=== PATIENT | female | born 1965 | race Caucasian/White ===

== ENCOUNTER 2019-03-11 14:19 | Outpatient (CLI) | payer OTHER, SELFPAY ==
--- NOTE | 2019-03-11 15:00 | USCV_ITS ---
Barbara Reece Age: 53 Gender: F : 1965 Exam Date: 03/11/2019 14:58 Ordering Phys: Jed Arroyo MD Technologist: Amy Mosher [place] [facility] [place]: HTN. COPD. BP: / HR: 67 Rhythm: Sinus Technical Quality: Adequate MEASUREMENTS (Male / Female) Normal Values 2D ECHO LV Diastolic Diameter PLAX 4.2 cm 4.2 - 5.9 / 3.9 - 5.3 cm LV Systolic Diameter PLAX 2.0 cm LV Chamber Size 3.7 cm IVS Diastolic Thickness 1.5 cm 0.6 - 1.0 / 0.6 - 0.9 cm IVS Systolic Thickness 1.8 cm LVPW Diastolic Thickness 1.2 cm 0.6 - 1.0 / 0.6 - 0.9 cm LVPW Systolic Thickness 1.7 cm RV Chamber Size 2.6 cm LVOT Diameter 2.1 cm LV Ejection Fraction 2D Teich 84.0 % LV Ejection Fraction MOD 2C 49.8 % LV Ejection Fraction 2C AL 54.0 % LA Diameter 4.0 cm LA Width 2.9 cm LA Height 4.7 cm RA Width 2.5 cm RA Height 3.8 cm Aorta at Sinotubular Diameter 2.8 cm M-MODE LV Diastolic Diameter MM 4.5 cm 4.2 - 5.9 / 3.9 - 5.3 cm LV Systolic Diameter MM 3.5 cm LV Ejection Fraction MM Teich 45.7 % IVS Diastolic Thickness MM 1.4 cm 0.6 - 1.0 / 0.6 - 0.9 cm IVS Systolic Thickness MM 1.6 cm LVPW Diastolic Thickness MM 1.2 cm 0.6 - 1.0 / 0.6 - 0.9 cm LVPW Systolic Thickness MM 1.7 cm RV Diastolic Diameter MM 0.9 cm Aortic Annulus Diameter 2.8 cm LA Ao Ratio MM 1.4 MV E Point Septal Separation 0.4 cm DOPPLER AV Peak Velocity 171.0 cm/s LVOT Peak Velocity 93.0 cm/s AV Area Cont Eq vti 2.1 cm squared AV Area Cont Eq pk 1.8 cm squared MV Area PHT 2.8 cm squared Mitral E to A Ratio 1.3 MV E' Velocity 9.0 cm/s Mitral E to MV E' Ratio 7.5 Mitral E to LV E' Lateral Ratio 7.8 Mitral E to LV E' Septal Ratio 7.2 TR Peak Velocity 182.3 cm/s TR Peak Gradient 13.3 mmHg TR Mean Velocity 102.8 cm/s TR Mean Gradient 5.4 mmHg TR Velocity Time Integral 38.6 cm TV Peak E Velocity 53.0 cm/s Right Atrial Pressure 3.0 mmHg Pulmonary Artery Systolic Pressu 16.3 mmHg PV Peak Velocity 69.0 cm/s RV Acceleration Time 0.1 s RV Ejection Time 0.3 s RV AcT/ET 0.4 FINDINGS Left Ventricle Normal left ventricular cavity size. Normal left ventricular systolic function. No regional wall motion abnormalities. Left ventricular ejection fraction is estimated at 60 %. Grade I/IV diastolic dysfunction (abnormal relaxation filling pattern), normal to mildly elevated filling pressures. Right Ventricle The right ventricle is normal in size and function. Right Atrium The right atrium is normal in size. Left Atrium The left atrium is normal in size. Mitral Valve Structurally normal mitral valve without significant stenosis or prolapse. There is no mitral regurgitation. Aortic Valve Structurally normal aortic valve without significant sclerosis or stenosis. There is no aortic regurgitation. Tricuspid Valve Structurally normal tricuspid valve without significant stenosis or regurgitation. Pulmonary artery systolic pressure is normal. Pulmonic Valve Structurally normal pulmonic valve without significant stenosis. There is no pulmonic regurgitation. Pericardium Normal pericardium without effusion. Aorta Normal ascending aorta dimension. CONCLUSIONS 1-Normal left ventricular cavity size. Normal left ventricular systolic function. No regional wall motion abnormalities. Left ventricular ejection fraction is estimated at 60 %. Grade I/IV diastolic dysfunction (abnormal relaxation filling pattern), normal to mildly elevated filling pressures. 2-There is no pericardial effusion. 3-Pulmonary artery systolic pressure is within normal limits. 4-No significant valve abnormalities. 5-Right atrial pressure is around 5 mm of mercury. 6-There are no prior echocardiogram studies to compare. Delmar Riggs MD (Electronically Signed) Final Date: 11 March 2019 18:38 S
== END 2019-03-11 14:20 | disposition home or self-care (01) ==
PROVIDERS: Family Provider Family Medicine; PCP Family Medicine; Visit Provider Internal Medicine Critical Care Medicine
DX: I10 Essential (primary) hypertension (principal); J44.9 Chronic obstructive pulmonary disease, unspecified
CPT/HCPCS: 93306

== ENCOUNTER 2019-04-08 14:00 | Outpatient (CLI) | payer OTHER, SELFPAY | END 2019-04-08 14:01 | disposition home or self-care (01) | LOC: SLEEP 04-12 10:16 | PROVIDERS: Visit Provider Internal Medicine Critical Care Medicine | DX: J44.9 Chronic obstructive pulmonary disease, unspecified (principal) | CPT/HCPCS: 94762 ==

== ENCOUNTER 2019-04-09 13:16 | Outpatient (CLI) | payer OTHER, SELFPAY ==
[2019-04-09 14:22] VITALS: O2SAT 96; O2SAT 98
== END 2019-04-09 13:17 | disposition home or self-care (01) ==
LOC: RT 13:19
PROVIDERS: Visit Provider Internal Medicine Critical Care Medicine
DX: J44.9 Chronic obstructive pulmonary disease, unspecified (principal)
CPT/HCPCS: 94010; 94726; 94729

== ENCOUNTER 2019-07-16 09:35 | Outpatient (CLI) | payer OTHER, SELFPAY ==
--- NOTE | 2019-07-16 10:19 | CT_ITS ---
WS: [id number] LDCT LUNG CANCER SCREENING TECHNIQUE: Noncontrast CT of the chest with coronal and sagittal reformatted images. CLINICAL INFORMATION: HX OF TOBACCO USER COMPARISON: None. DLP: 53.25 mGy.cm DIvol: 1.[address] scans at [facility] use at least one of these dose optimization techniques: automat ed exposure control; mA and/or kV adjustment per patient size (includes targeted exams where dose is matched to clinical indication); or iterative reconstruction. FINDINGS: 6 mm semisolid nodule along the left fissure. 2 additional 3 mm noncalcified nodules in the left uppe r lobe. No other suspicious pulmonary parenchymal opacities. No acute pulmonary infiltrates. No mediastinal or hilar lymphadenopathy. Coronary calcification. Adre nal glands are normal. Small esophageal hiatal hernia. CT/CT lung screening [id number] IMPRESSION: LUNG-RADS: 3-Probably Benign FOLLOW UP: 6 Month LDCT
== END 2019-07-16 09:36 | disposition home or self-care (01) ==
PROVIDERS: Visit Provider Internal Medicine Critical Care Medicine
DX: Z12.2 Encounter for screening for malignant neoplasm of respiratory organs (principal); F17.210 Nicotine dependence, cigarettes, uncomplicated; R91.8 Other nonspecific abnormal finding of lung field; K44.9 Diaphragmatic hernia without obstruction or gangrene
CPT/HCPCS: G0297

== ENCOUNTER 2019-08-26 20:00 | Outpatient (CLI) | payer OTHER, SELFPAY | END 2019-08-26 20:01 | disposition home or self-care (01) | LOC: SLEEP 08-27 08:32 | PROVIDERS: Visit Provider Internal Medicine Critical Care Medicine | DX: G47.10 Hypersomnia, unspecified (principal); G47.33 Obstructive sleep apnea (adult) (pediatric) | CPT/HCPCS: 95810 ==

== ENCOUNTER → 2019-09-01 10:44 | Outpatient (BNVA) | payer OTHER, SELFPAY | PROVIDERS: Visit Provider Family Medicine | DX: I10 Essential (primary) hypertension (principal); E78.5 Hyperlipidemia, unspecified; E03.9 Hypothyroidism, unspecified | CPT/HCPCS: 80053; 80061; 84439; 84443; 84481 ==

== ENCOUNTER 2019-09-28 20:00 | Outpatient (CLI) | payer OTHER, SELFPAY | END 2019-09-28 20:01 | disposition home or self-care (01) | LOC: SLEEP 09-29 08:58 | PROVIDERS: Visit Provider Internal Medicine Critical Care Medicine | DX: G47.33 Obstructive sleep apnea (adult) (pediatric) (principal) | CPT/HCPCS: 95811 ==

== ENCOUNTER → 2020-01-15 10:54 | Outpatient (BNVA) | payer OTHER, SELFPAY | PROVIDERS: Visit Provider Emergency Medicine | DX: J41.0 Simple chronic bronchitis (principal) | CPT/HCPCS: 71046 ==

== ENCOUNTER 2020-01-20 11:00 | Outpatient (CLI) | payer OTHER, SELFPAY | END 2020-01-20 11:01 | disposition home or self-care (01) | LOC: SLEEP 01-26 10:58 | PROVIDERS: Visit Provider Internal Medicine Critical Care Medicine | DX: G47.34 Idiopathic sleep related nonobstructive alveolar hypoventilation (principal) | CPT/HCPCS: 94762 ==

== ENCOUNTER 2020-01-28 09:34 | Outpatient (CLI) | payer OTHER, SELFPAY ==
--- NOTE | 2020-01-28 10:00 | CT_ITS ---
WS: [id number] CT CHEST TECHNIQUE: Noncontrast CT of the chest with coronal and sagittal reformatted images. CLINICAL INFORMATION: Chronic Bronchitis COMPARISON: CT July 16, 2019 DLP: 912.[address] scans at [facility] use at least one of these dose optimization techniques: automat ed exposure control; mA and/or kV adjustment per patient size (includes targeted exams where dose is matched to clinical indication); or iterative reconstruction. FINDINGS: Again seen is a 6 mm semisolid nodule left fissure. This is unchanged from previous. Two additional t iny 2-3 mm noncalcified nodules in the left upper lobe are also unchanged. A few faint hazy opacities in the left lower lobe laterally and along the left lower lobe medially li lina infectious or inflammatory. Mild chronic emphysematous changes. No focal pneumonia or pleural fl uid. No mediastinal or hilar lymphadenopathy. Calcified right hilar nodes. Coronary calcification. No axillary lymphadenopathy. Small esophageal hiatal hernia. Adrenal glands are normal. Mild thoracic k yphosis. Hypertrophic changes thoracic spine. CT/CT chest wo con [id number] IMPRESSION: 1. Previously described noncalcified nodules in the left lung are unchanged. R ecommend 12 month follow-up. 2. Chronic emphysematous changes. 3. No mediastinal or hilar lymphadenopathy. 4. A few faint hazy opacities in the left lower lobe likely infectious or infl ammatory. Recommend correlation for pneumonitis.
== END 2020-01-28 09:35 | disposition home or self-care (01) ==
LOC: RADWPI 09:38
PROVIDERS: PCP Family Medicine; Visit Provider Internal Medicine Critical Care Medicine
DX: J42 Unspecified chronic bronchitis (principal)
CPT/HCPCS: 71250

== ENCOUNTER → 2020-03-13 17:37 | Outpatient (BNVA) | payer OTHER, SELFPAY | PROVIDERS: PCP Family Medicine; Visit Provider Family Medicine | DX: I10 Essential (primary) hypertension (principal); E03.9 Hypothyroidism, unspecified; F32.5 Major depressive disorder, single episode, in full remission; R73.03 Prediabetes | CPT/HCPCS: 80053 ==

== ENCOUNTER 2020-07-14 08:47 | Outpatient (CLI) | payer OTHER, SELFPAY ==
--- NOTE | 2020-07-14 08:56 | CT_ITS ---
WS: [id number] LDCT LUNG CANCER SCREENING HISTORY: NICOTINE DEPENDENCE, CIGARETTES TECHNIQUE: Axial imaging performed from the apices to 1 cm below the costophrenic angles. Coronal and sagittal reformats are submitted with axial MIP series. All CT scans at [facility] use at least one of these dose optimization techniques: automated exposure control; mA and/or kV adjustment per patient size (includes targeted exams where dose is matched to clinical indication); or iterativ e reconstruction. DLP: 49.83 mGy.cm DIvol: 1.58 mGy COMPARISON: 01/28/2020 Diagnostic quality: Satisfactory Lung Nodules: LEFT perifissural nodule nodule measures 5 mm along the mid major fissure. Unchanged si nce 07/16/2019. There is additional 3 mm nodules in the posterior LEFT upper lobe. No new or increasing nodules. No endobronchial lesions. Lungs: Hyperexpansion from emphysema. Heart: Normal size. There are a few scattered calcifications in the LEFT anterior descending coronary artery. Other findings: Small hiatal hernia. Hepatic steatosis. CT/CT lung screening [id number] IMPRESSION: LUNG-RADS: 2-Benign Appearance or Behavior FOLLOW UP: 12 Month: Continue annual screening with LDCT OTHER FINDINGS (S MODIFIER): None.
== END 2020-07-14 08:48 | disposition home or self-care (01) ==
LOC: CT 08:52
PROVIDERS: PCP Family Medicine; Visit Provider Internal Medicine Critical Care Medicine
DX: Z12.2 Encounter for screening for malignant neoplasm of respiratory organs (principal); F17.210 Nicotine dependence, cigarettes, uncomplicated; K44.9 Diaphragmatic hernia without obstruction or gangrene; K76.0 Fatty (change of) liver, not elsewhere classified
CPT/HCPCS: 71271

== ENCOUNTER 2020-12-01 17:10 | Outpatient (CLI) | payer OTHER, SELFPAY ==
[2020-12-01 18:58] LABS: Alanine Aminotransferase 29 U/L (0-33); Albumin Level 3.9 g/dL (3.5-5.2); Alkaline Phosphatase 107 IU/L (35-105); Anion Gap 14.5 (5-19); Aspartate Amino Transferase 17 U/L (0-32); Blood Urea Nitrogen 21 mg/dL (6-20); Calcium 9.1 mg/dL (8.5-10.5); Carbon Dioxide 27 mmol/L (22-29); Chloride 99 mmol/L (98-107); Cholesterol 168 mg/dL (0-200); Globulin 2.9 g/dL (1.3-4.6); Glomerular Filtration Rate 64.5 mL/min (90-130); Glucose 85 mg/dL (65-115); HDL Cholesterol 41 mg/dL (60-100); LDL Cholesterol Calculated 49 mg/dL (50-129); Osmolality Calculated 286 mOsm/kg (285-295); Potassium 3.5 mmol/L (3.5-5.1); Sodium 137 mmol/L (136-145); Thyroid Stimulating Hormone 2.37 uIU/mL (0.27-4.20); Total Bilirubin 0.2 mg/dL (0.15-1.2); Total Protein 6.8 g/dL (6.6-8.7); Triglycerides 391 mg/dL (0-150)
[2020-12-01 22:05] LABS: Estmated Average Glucose 131; Hemoglobin A1C 6.2 % (4.0-6.0)
== END 2020-12-01 17:11 | disposition home or self-care (01) ==
PROVIDERS: PCP Family Medicine; Visit Provider Family Medicine
DX: E78.2 Mixed hyperlipidemia (principal); E03.9 Hypothyroidism, unspecified; R73.03 Prediabetes; I10 Essential (primary) hypertension
CPT/HCPCS: 80053; 80061; 82140; 82247; 82248; 83036; 84443; 85025; 86038; 86200; 86431

== ENCOUNTER → 2021-01-20 10:26 | Outpatient (BNVA) | payer OTHER, SELFPAY | PROVIDERS: PCP Family Medicine; Visit Provider Nurse Practitioner Family | DX: D89.89 Other specified disorders involving the immune mechanism, not elsewhere classified (principal) | CPT/HCPCS: 88304 ==

== ENCOUNTER → 2021-02-06 09:46 | Outpatient (BNVA) | payer OTHER, SELFPAY | PROVIDERS: PCP Family Medicine; Visit Provider Internal Medicine | DX: E03.9 Hypothyroidism, unspecified (principal); R21 Rash and other nonspecific skin eruption; J41.0 Simple chronic bronchitis; Z11.59 Encounter for screening for other viral diseases; F17.210 Nicotine dependence, cigarettes, uncomplicated | CPT/HCPCS: 99204 ==

== ENCOUNTER 2021-02-06 11:42 | Outpatient (CLI) | payer OTHER, SELFPAY | END 2021-02-06 11:43 | disposition home or self-care (01) | LOC: LAB 11:47 | PROVIDERS: PCP Family Medicine; Visit Provider Internal Medicine | DX: E03.9 Hypothyroidism, unspecified (principal) | CPT/HCPCS: 83516; 84443; 85651; 86140; 86160; 86162; 86235; 86255; 86376; 86704; 86803; 87340 ==

== ENCOUNTER 2021-05-05 10:05 | Outpatient (CLI) | payer OTHER, BC, SELFPAY ==
[2021-05-05 10:37] LABS: Basophils % 0.1 %; Eosinophils # 0.3 10^3/uL (0.0-0.8); Eosinophils % 3.6 %; Hematocrit 45.4 % (37.0-47.0); Hemoglobin 13.8 g/dL (11.5-15.3); Lymphocytes # 2.6 10^3/uL (0.8-4.8); Lymphocytes % 32.8 %; Mean Corpuscular HGB Conc 30.4 g/dL (30.0-36.0); Mean Corpuscular Hemoglobin 28.3 pg (28.0-34.0); Mean Platelet Volume 12.4 fL (7.4-10.4); Monocytes # 0.7 10^3/uL (0.2-0.9); Monocytes % 8.3 %; Neutrophils # 4.27 10^3/uL (1.8-7.7); Neutrophils % 54.8 %; Nucleated Red Blood Cells % 0 %; Platelet Count 199 10^3/cmm (130-400); Red Blood Count 4.88 10^6/uL (4.1-5.3); Red Cell Distribution Width 13.6 % (12.1-15.1); White Blood Count 7.8 10^3/uL (4.0-10.0)
[2021-05-05 10:46] LABS: Erythrocyte Sedimentation Rate 9 mm/hr (0-15)
[2021-05-05 10:56] LABS: Alanine Aminotransferase 13 U/L (0-33); Alkaline Phosphatase 96 IU/L (35-105); Anion Gap 14.2 (5-19); Aspartate Amino Transferase 14 U/L (0-32); Blood Urea Nitrogen 12 mg/dL (6-20); C Reactive Protein 12.6 mg/L (0.0-4.9); Carbon Dioxide 25 mmol/L (22-29); Chloride 106 mmol/L (98-107); Glucose 102 mg/dL (65-115); Osmolality Calculated 292 mOsm/kg (285-295); Potassium 4.2 mmol/L (3.5-5.1); Sodium 141 mmol/L (136-145); Total Bilirubin 0.2 mg/dL (0.15-1.2)
== END 2021-05-05 10:06 | disposition home or self-care (01) ==
LOC: LAB 10:16
PROVIDERS: PCP Family Medicine; Visit Provider Internal Medicine
DX: R76.8 Other specified abnormal immunological findings in serum (principal); Z79.899 Other long term (current) drug therapy
CPT/HCPCS: 36415; 80053; 85025; 85651; 86140

== ENCOUNTER → 2021-11-15 13:30 | Outpatient (BNVA) | payer OTHER, BC, SELFPAY | PROVIDERS: PCP Family Medicine; Visit Provider Family Medicine | DX: F32.5 Major depressive disorder, single episode, in full remission (principal); E03.9 Hypothyroidism, unspecified; I10 Essential (primary) hypertension; J42 Unspecified chronic bronchitis; J41.0 Simple chronic bronchitis; E78.2 Mixed hyperlipidemia; R73.03 Prediabetes; I50.32 Chronic diastolic (congestive) heart failure | CPT/HCPCS: 80053; 80061; 83036; 84443 ==

== ENCOUNTER 2021-11-29 07:44 | Outpatient (CLI) | payer OTHER, BC, SELFPAY ==
--- NOTE | 2021-11-29 07:54 | MM_ITS ---
WS: [id number] BILATERAL SCREENING DIGITAL TOMOSYNTHESIS MAMMOGRAM WITH CAD HISTORY: SCREENING COMPARISON: 09/25/2018 and 09/23/2014 Bilateral CC and MLO views with tomosynthesis and synthetic mammography submitted. Computer aided det ection analyzed. Breast composition: There are scattered areas of fibroglandular density. No suspicious masses, microc alcifications or architectural distortion. Stable asymmetries in the LEFT breast over multiple prior years. MM/[place] [id number] IMPRESSION: BI-RADS: 2-Benign FOLLOW UP: 1 Year Follow-up
== END 2021-11-29 07:45 | disposition home or self-care (01) ==
LOC: RAD 07:44
PROVIDERS: PCP Family Medicine; Visit Provider Family Medicine
DX: Z12.31 Encounter for screening mammogram for malignant neoplasm of breast (principal)
CPT/HCPCS: 77063; 77067

== ENCOUNTER 2022-01-28 07:01 | Outpatient (CLI) | payer OTHER, BC, SELFPAY ==
--- NOTE | 2022-01-28 07:15 | CT_ITS ---
WS: [id number] LDCT LUNG CANCER SCREENING HISTORY: Z12.2 - Encounter for screening for malignant neoplasm of... Lung. TECHNIQUE: Axial imaging performed from the apices to 1 cm below the costophrenic angles. Coronal and sagittal reformats are submitted with axial MIP series. All CT scans at [facility] use at least one of these dose optimization techniques: automated exposure control; mA and/or kV adjustment per patient size (includes targeted exams where dose is matched to clinical indication); or iterativ e reconstruction. DLP: 73.61 mGy.cm DIvol: Mean CTDIvol: 1.60 (mGy) COMPARISON: 07/14/2020 Diagnostic quality: Limited by body habitus. Lung Nodules: No change in the mid LEFT perifissural nodule measuring 5 mm. Bilateral, noncalcified l ess than 3 mm upper lobe nodules. There are no enlarging or suspicious masses. No pneumonia or ground glass attenuation. No endobronchial lesion. Lungs: Hyperexpansion, emphysema. Heart: Normal size heart. Minimal coronary artery atherosclerosis. No effusion. Other findings: No mediastinal widening. Small hiatal hernia. Hepatic steatosis. Low-attenuation 11 m m mass extending lateral from the mid LEFT kidney may be a cyst. Hounsfield units are low. CT/CT lung screening [id number] IMPRESSION: LUNG-RADS: 2-Benign Appearance or Behavior FOLLOW UP: 12 Month: Continue annual screening with LDCT OTHER FINDINGS (S MODIFIER): None.
== END 2022-01-28 07:02 | disposition home or self-care (01) ==
LOC: RAD 07:01
PROVIDERS: PCP Family Medicine; Visit Provider Family Medicine
DX: Z12.2 Encounter for screening for malignant neoplasm of respiratory organs (principal); F17.200 Nicotine dependence, unspecified, uncomplicated
CPT/HCPCS: 71271

== ENCOUNTER 2022-12-28 16:31 | Emergency (ER) | payer OTHER, SELFPAY ==
[2022-12-28 16:40] VITALS: BP 161/104; PULSE 72; RESP 16; TEMP 36.8; O2SAT 94; BMI 43.4
--- NOTE | 2022-12-28 20:48 | ED_ITS ---
HPI - General Adult General: Chief complaint: General Medical Stated complaint: shingels Time Seen by Provider: 12/28/22 20:35 History of Present Illness: Patient presents to the ER with complaints of shingles pain on her left back radiating down to her left hip region and around to her abdomen. Patient was seen by her PCP yesterday given a shot of steroids and some valacyclovir. Patient said this has not helped and the pain is still there. Patient also admits to some mild nausea vomiting and diarrhea this week. Review of Systems General: Reports: 10 or more systems reviewed and unremarkable except in HPI and below PFSH ED PFSH: Medical History Brain aneurysm Chronic bronchitis Depression Diastolic heart failure HTN (hypertension) Hyperlipidemia Hyperthyroidism Hypothyroidism Surgical History H/O tubal ligation Hx of tonsillectomy Family History Grandfather CAD (coronary artery disease) Diabetes Hypertension Stroke Heart attack Grandmother Cancer Father Hypertension Unknown Hyperlipidemia Denies family history of Rheumatoid arthritis Lupus Social History Smoking and tobacco/nicotine status: current every day tobacco/nicotine user (1/2 PPD Started smoking at age 12) cigarettes Years cigarettes smoked: 42 Quit status (tobacco/nicotine): considering quitting Second hand smoke exposure: Yes Alcohol intake: never Substance/Drug Use: never Lives independently: Yes Household members: none Marital status: Single Current occupational status: employed Current occupational exposures/hazards: No Do you think of yourself as: Straight/Heterosexual Current gender identity: Female Physical Exam Const: COMMON NORMALS: no acute distress, average body habitus, patient oriented x3, no limitations, healthy appearing, alert and well nourished HENMT: COMMON NORMALS: normocephalic, atraumatic, hearing grossly normal bilaterally, external ears normal, Normal external nose present, moist oral mucous membranes and oropharynx normal HEAD & SCALP: normocephalic and atraumatic NOSE: Normal external nose present EXTERNAL EAR: Yes external ears normal Neck/C-Spine: COMMON NORMALS: full ROM, no lymphadenopathy, supple, no meningeal signs, no JVD and Thyroid normal THYROID: Thyroid normal Chest: COMMONS NORMALS: normal inspection of the chest and normal palpation of entire chest wall Resp: COMMON NORMALS: normal respiratory effort, No retractions, No use of accessory muscles and clear to auscultation bilaterally AUSCULTATION: clear to auscultation bilaterally Cardio: COMMON NORMALS: no JVD, regular rate, regular rhythm, S1 normal heart sound present, S2 normal heart sound present, No gallops present (Cardio), No clicks present (Cardio), No murmurs present (Cardio) and No rub (Cardio) RATE: regular rate RHYTHM: regular rhythm HEART SOUNDS: S1 normal heart sound present and S2 normal heart sound present GI: COMMON NORMALS: Normal to inspection, nondistended, normoactive bowel sounds present, Soft to palpation, non-tender, No hepatosplenomegaly present and no masses PALPATION: Yes Soft to palpation and Yes No hepatosplenomegaly present : COMMON NORMALS: Yes no CVA tenderness (Healing vesicular type rash in a dermatomal type pattern of approximately L) BLADDER/KIDNEY EXAM: Yes no CVA tenderness (Healing vesicular type rash in a dermatomal type pattern of a pproximately L) Back/Pelvis: COMMON NORMALS: no CVA tenderness (Healing vesicular type rash in a dermatomal type pattern of approximately L) Neuro: COMMON NORMALS: patient oriented x3 SENSORIUM/ORIENTATION: Yes alert MENINGEAL SIGNS: Yes no meningeal signs Course Vital Signs: Vital signs: Vital Signs Temperature 98.2 F 12/28/22 16:40 Pulse Rate 72 12/28/22 16:40 Respiratory Rate 16 12/28/22 16:40 Blood Pressure 161/104 12/28/22 16:40 Pulse Oximetry 94 12/28/22 16:40 Oxygen Delivery Me thod Room Air 12/28/22 16:40 MDM - General Adult Medical Decision Making Patient presents to the ER with complaints of shingles and neuropathic pain. Patient was trialed on a dose of Solu-Medrol 125 mg IM Toradol 60 mg IM and gabapentin 300 mg p.o. during this episode patient had a breakout in hives patient was given 50 mg Benadryl IM. Patient's pain has substantially decreased. Patient stated her hives actually started breaking out before she arrived to the ER. Patient be discharged home on a prescription of gabapentin. Differential Diagnosis Shingles, neuropathic pain, nausea vomiting diarrhea Medical Records I reviewed the patient's medical records. Lab Data I reviewed the patient's lab results. No radiology studies performed this visit Discharge Plan Discharge Patient Disposition: Home Clinical Impression: Acute herpes zoster neuropathy Condition: Stable Prescriptions: New gabapentin 300 mg capsule 300 mg PO Q8H PRN (Reason: pain) Qty: 30 0RF No Action diphenhydramine HCl [Benadryl] 25 mg capsule 25 mg PO TID PRN elderberry fruit 200 mg capsule PO magnesium 250 mg tablet 250 mg PO DAILY multivitamin Tablet 1 tab PO DAILY lysine [L-Lysine] 500 mg tablet 500 mg PO DAILY potassium gluconate 595 mg (99 mg) tablet 595 mg PO DAILY citalopram 20 mg tablet See Rx Instructions .ROUTE .COMPLEX 90 Days Qty: 90 3RF Dose Instruction: TAKE ONE TABLET BY MOUTH DAILY Rx Instructions: TAKE ONE TABLET BY MOUTH DAILY levothyroxine 50 mcg tablet See Rx Instructions .ROUTE .COMPLEX 90 Days Qty: 90 3RF Dose Instruction: TAKE ONE TABLET BY MOUTH EVERY DAY Rx Instructions: TAKE ONE TABLET BY MOUTH EVERY DAY lisinopril-hydrochlorothiazide 10-12.5 mg tablet See Rx Instructions .ROUTE .COMPLEX 90 Days Qty: 90 3RF Dose Instruction: TAKE ONE TABLET BY MOUTH EVERY DAY Rx Instructions: TAKE ONE TABLET BY MOUTH EVERY DAY albuterol sulfate 90 mcg/actuation HFA aerosol inhaler 2 puff INHALATION Q6H PRN (Reason: shortness of breath or wheezing) Qty: 8.5 5RF Anoro Ellipta 62.5-25 mcg/actuation blister with device See Rx Instructions .ROUTE .COMPLEX Qty: 60 11RF Dose Instruction: 1 PUFF BY MOUTH DAILY Rx Instructions: 1 PUFF BY MOUTH DAILY valacyclovir 1 gram tablet 1,000 mg PO Q8H 7 Days Qty: 21 0RF albuterol sulfate 90 mcg/actuation HFA aerosol inhaler 2 inh inhalation Q4H PRN (Reason: shortness of breath or wheezing) Qty: 8.5 0RF Discharge Orders: Discharge ED (Routine); Ordered 12/28/22 Ordered By: Maulik George Referrals: Luciana Saxena MD [Primary Care Provider] - 1 week Patient Instructions: Shingles (ED) Activity Restrictions/Additional Instructions: Please take the gabapentin as directed as needed. Please follow-up with your family practice doctor within the next 7 to 10 days for further evaluation and treatment. Coding Level of Care Code ED Final Dressing Cutter for Eileen Hayes
[2022-12-28] MEDS: methylPREDNISolone sod succ 125 MG in water for injection-sterile 2 ML 24 MG IM (21:04)
[2022-12-28] MEDS: ketorolac 60 mg/2 mL INJ IM (21:04)
[2022-12-28] MEDS: gabapentin 300 mg Capsule PO (21:05)
[2022-12-28] MEDS: diphenhydrAMINE 50 mg/mL SDV 1mL IM (22:12)
[2022-12-28 22:55] VITALS: BP 132/89; PULSE 63; RESP 16; O2SAT 93
[2022-12-28 23:02] VITALS: BP 132/89; PULSE 63; RESP 16; O2SAT 93
== END 2022-12-28 23:09 | disposition home or self-care (01) ==
PROVIDERS: Emergency Provider Emergency Medicine; PCP Family Medicine
DX: B02.23 Postherpetic polyneuropathy (principal); I11.0 Hypertensive heart disease with heart failure; I50.30 Unspecified diastolic (congestive) heart failure; E78.5 Hyperlipidemia, unspecified; F17.210 Nicotine dependence, cigarettes, uncomplicated
CPT/HCPCS: 96372; 99284; J1200; J1885; J2930

== ENCOUNTER → 2023-02-21 11:25 | Outpatient (BNVA) | payer OTHER, SELFPAY | PROVIDERS: PCP Family Medicine; Visit Provider Family Medicine | DX: Z23 Encounter for immunization (principal); F32.5 Major depressive disorder, single episode, in full remission; E03.9 Hypothyroidism, unspecified; I10 Essential (primary) hypertension; J41.0 Simple chronic bronchitis; J42 Unspecified chronic bronchitis; R73.03 Prediabetes; E78.5 Hyperlipidemia, unspecified | CPT/HCPCS: 80053; 80061; 83036; 84439; 84443; 84481 ==

== ENCOUNTER 2023-03-21 11:12 | Outpatient (CLI) | payer OTHER, SELFPAY ==
--- NOTE | 2023-03-21 11:17 | MM_ITS ---
WS: [id number] BILATERAL 3D TOMOSYNTHESIS DIGITAL SCREENING MAMMOGRAPHY WITH CAD CLINICAL INFORMATION: Z12.39 - Encounter for other screening for malignant neop... HISTORY: Screening mammogram. No current complaints. COMPARISON: 2021 TECHNIQUE: Bilateral CC and MLO views. FINDINGS: Scattered fibroglandular densities bilaterally. No suspicious focal mass, asymmetry, calcifications, or architectural distortion. No evidence of malignancy. Vascular calcification. Incidental benign bella cification RIGHT breast. IMPRESSION: MM/[place] [id number] BI-RADS: 2-Benign FOLLOW UP: 1 Year Follow-up Recommend return to annual screening mammography.
--- NOTE | 2023-03-21 14:00 | CT_ITS ---
WS: [id number] LDCT LUNG CANCER SCREENING TECHNIQUE: Noncontrast CT of the chest with coronal and sagittal reformatted images. CLINICAL INFORMATION: Z12.2 - Encounter for screening for malignant neoplasm of... COMPARISON: CT 01/28/2022 DLP: 116.80 mGy.cm DIvol: Mean CTDIvol: 2.60 (mGy) All CT scans at [facility] use at least one of these dose optimization techniques: automat ed exposure control; mA and/or kV adjustment per patient size (includes targeted exams where dose is matched to clinical indication); or iterative reconstruction. FINDINGS: Stable previously-described subcentimeter LEFT perifissural nodule measuring 5 mm. Stable noncalcifie d subcentimeter tiny upper lobe nodules. No new or suspicious pulmonary parenchymal abnormalities. Hyperinflation. Chronic emphysematous changes. Coronary calcification. No mediastinal or hilar lympha denopathy. Small esophageal hiatal hernia. Adrenal glands are normal. Exophytic LEFT renal lesion me asuring 1.8 cm likely renal cyst is unchanged. Chronic anterior wedging in the midthoracic spine. IMPRESSION: CT/CT lung screening [id number] LUNG-RADS: 2-Benign Appearance or Behavior FOLLOW UP: 12 Month: Continue annual screening with LDCT
== END 2023-03-21 11:13 | disposition home or self-care (01) ==
LOC: RAD 11:12
PROVIDERS: PCP Family Medicine; Visit Provider Family Medicine
DX: Z12.31 Encounter for screening mammogram for malignant neoplasm of breast (principal); Z12.2 Encounter for screening for malignant neoplasm of respiratory organs; F17.210 Nicotine dependence, cigarettes, uncomplicated; I25.10 Atherosclerotic heart disease of native coronary artery without angina pectoris; R91.8 Other nonspecific abnormal finding of lung field
CPT/HCPCS: 71271; 77063; 77067

== ENCOUNTER → 2023-09-25 13:22 | Outpatient (BNVA) | payer OTHER, SELFPAY | PROVIDERS: PCP Family Medicine; Visit Provider Emergency Medicine | DX: J41.0 Simple chronic bronchitis (principal) | CPT/HCPCS: 71046 ==

== ENCOUNTER → 2024-02-12 08:47 | Outpatient (BNVA) | payer OTHER, SELFPAY | PROVIDERS: PCP Family Medicine; Visit Provider Family Medicine | DX: Z12.4 Encounter for screening for malignant neoplasm of cervix (principal); I10 Essential (primary) hypertension; R73.03 Prediabetes; E03.9 Hypothyroidism, unspecified | CPT/HCPCS: 80053; 80061; 83036; 84439; 84443; 84481; 87624 ==

== ENCOUNTER 2024-03-26 11:54 | Outpatient (CLI) | payer OTHER, SELFPAY ==
--- NOTE | 2024-03-26 12:30 | MM_ITS ---
WS: [id number] BILATERAL 3D TOMOSYNTHESIS DIGITAL SCREENING MAMMOGRAPHY WITH CAD CLINICAL INFORMATION: Z12.39 - Encounter for other screening for malignant neop... HISTORY: Screening mammogram. No current complaints. COMPARISON: 2023 TECHNIQUE: Bilateral CC and MLO views. FINDINGS: Scattered fibroglandular densities bilaterally. No suspicious focal mass, asymmetry, calcifications, or architectural distortion. No evidence of malignancy. Incidental calcification RIGHT breast. MM/MM [facility] tomosynthesis [id number] IMPRESSION: DENSITY: There are scattered areas of fibroglandular density. BI-RADS: 2 - Benign. FOLLOW UP: 1 Year Follow-up Recommend return to annual screening mammography.
--- NOTE | 2024-03-26 13:30 | CT_ITS ---
WS: [id number] LDCT LUNG CANCER SCREENING HISTORY: F17.210 - Nicotine dependence, cigarettes, uncomplicated TECHNIQUE: Axial imaging performed from the apices to 1 cm below the costophrenic angles. Coronal and sagittal reformats are submitted with axial MIP series. All CT scans at [facility] use at least one of these dose optimization techniques: automated exposure control; mA and/or kV adjustment per patient size (includes targeted exams where dose is matched to clinical indication); or iterativ e reconstruction. DLP: 99.52 mGy.cm DIvol: Mean CTDIvol: 2.70 (mGy) COMPARISON: 03/21/2023 Diagnostic quality: Satisfactory Lungs: Bilateral peripheral upper lobe pulmonary micronodules. Stable 5 mm nodule associated with the LEFT major fissure. No mass or enlarging nodules. No endobronchial lesions. Heart: Mild cardiomegaly. No effusion. Normal size aorta and pulmonary artery. Moderate size hiatal h ernia. No adrenal mass. Other findings: Increase in thoracic kyphosis. Mild anterior wedging of the midthoracic vertebral bod ies. CT/CT lung screening [id number] IMPRESSION: LUNG-RADS: 2-Benign Appearance or Behavior FOLLOW UP: 12 Month: Continue annual screening with LDCT OTHER FINDINGS (S MODIFIER): None.
== END 2024-03-26 11:55 | disposition home or self-care (01) ==
PROVIDERS: PCP Family Medicine; Visit Provider Family Medicine
DX: Z12.31 Encounter for screening mammogram for malignant neoplasm of breast (principal); Z12.2 Encounter for screening for malignant neoplasm of respiratory organs; F17.210 Nicotine dependence, cigarettes, uncomplicated; R91.8 Other nonspecific abnormal finding of lung field; I51.7 Cardiomegaly; K44.9 Diaphragmatic hernia without obstruction or gangrene; M40.294 Other kyphosis, thoracic region; M48.54XA Collapsed vertebra, not elsewhere classified, thoracic region, initial encounter for fracture; R92.323 Mammographic fibroglandular density, bilateral breasts; R92.1 Mammographic calcification found on diagnostic imaging of breast
CPT/HCPCS: 71271; 77063; 77067

== ENCOUNTER → 2025-02-17 14:54 | Outpatient (BNVA) | payer OTHER, SELFPAY | PROVIDERS: PCP Family Medicine; Visit Provider Obstetrics & Gynecology | DX: R87.619 Unspecified abnormal cytological findings in specimens from cervix uteri (principal) | CPT/HCPCS: 87624 ==